=== PATIENT | female | born 1990 | race Caucasian/White ===

== ENCOUNTER 2022-03-05 08:58 | Emergency (ER) | payer BC, OTHER ==
[~2022-03-05] VITALS: Ht 175.3 cm; Wt 70.3 kg
[2022-03-05 09:17] VITALS: BP 116/66
== END 2022-03-05 10:12 | disposition home or self-care (01) ==
LOC: ER 08:58
DX: S93.401A Sprain of unspecified ligament of right ankle, initial encounter (principal); X50.1XXA Overexertion from prolonged static or awkward postures, initial encounter; Y93.89 Activity, other specified; Y92.89 Other specified places as the place of occurrence of the external cause; Y99.8 Other external cause status
CPT/HCPCS: 73600